=== PATIENT | male | born 1970 | race Caucasian/White ===

== ENCOUNTER 2018-10-24 18:22 | Emergency (ER) | payer OTHER ==
[~2018-10-24] VITALS: Ht 182.9 cm; Wt 90.7 kg
--- NOTE | ~2018-10-24 | EKG ---
[address] [place] [address] ELECTROCARDIOGRAM REPORT Name: KIM BARROSO Room #: REG MAG Rahman#: [id number] Admission: 10/24/18 Attend Phys: Discharge: Date of : 68 Report #: [id number] THIS REPORT FOR: //name// [facility] ED Test Date: 2018-10-24 Test Time: 18:27:53 Pat Name: KIM BARROSO Department: Room: Gender: Sales Account Representative: [place] : 1970 Requested By: Wayne Chen Order Number: [id number] MD: Frank Francis Measurements Intervals [place] Rate: 90 P: 94 [place]: 152 QRS: -4 QRSD: 92 T: 86 QT: 491 QTc: 601 Interpretive Statements Sinus rhythm Low voltage, extremity leads Nonspecific ST/T abnormalities, lateral leads No previous ECG available for comparison Electronically Signed On 10-24-2018 19:27:53 POWER SHEAR OPERATOR by Frank Francis [email or web address] <ELECTRONICALLY SIGNED> By: Frank Francis MD 10/24/18 1927 1827 182 Frank Francis MD /FERNANDO
[2018-10-24 19:17] LABS: ABSOLUTE NEUTROPHILS 4.8 thou/uL (1.4-8.2); BASOPHILS 0.7 % (0.0-2.0); EOSINOPHILS 3.5 % (0.0-3.0); HEMATOCRIT 44.1 % (42.0-52.0); HEMOGLOBIN 14.2 gm/dL (14.0-18.0); LYMPHOCYTES 25.8 % (24.0-44.0); MCH 29.3 pg (26.0-34.0); MCHC 32.3 g/dL (28.0-37.0); MCV 90.8 fL (80.0-100.0); MONOCYTES 10.1 % (1.0-8.0); PLATELET COUNT 265 thou/uL (150-400); POLYS 59.9 % (36.0-66.0); RBC 4.86 mil/uL (4.50-6.00); RDW 15.2 % (10.5-14.5); WBC 8.1 thou/uL (4.0-11.0)
[2018-10-24 19:21] LABS: ANION GAP 7 mmol/L (7-16); BUN 21 mg/dL (7-18); CALCIUM 8.1 mg/dL (8.5-10.1); CHLORIDE 106 mmol/L (98-107); CO2 27 mmol/L (21-32); GLUCOSE 101 mg/dL (74-106); POTASSIUM 4.7 mmol/L (3.5-5.1); SODIUM 140 mmol/L (136-145)
[2018-10-24 19:29] LABS: ALBUMIN 2.8 g/dL (3.4-5.0); LIPASE 169 U/L (73-393); MAGNESIUM 2.3 mg/dL (1.8-2.4); SGOT 47 U/L (15-37); SGPT 29 U/L (30-65); TOTAL BILIRUBIN 0.6 mg/dL (<0.1-1.0); TOTAL PROTEIN 7.4 g/dL (6.4-8.2); TROPONIN-I <0.06 ng/mL (<0.06)
[2018-10-24] MEDS ORDERED: PREDNISONE 20 M20 MG PO (20:49)
[2018-10-24] MEDS ORDERED: ZOFRAN8 MG PO (20:49)
[2018-10-24] MEDS ORDERED: VENTOLIN HFA 1818 GM INH (20:49)
[2018-10-24 21:14] VITALS: BP 112/57
== END 2018-10-24 21:15 | disposition home or self-care (01) ==
LOC: ER 18:22
PROVIDERS: Emergency Medicine
DX: I11.0 Hypertensive heart disease with heart failure (principal); I50.9 Heart failure, unspecified; J44.1 Chronic obstructive pulmonary disease with (acute) exacerbation; J20.9 Acute bronchitis, unspecified; K70.31 Alcoholic cirrhosis of liver with ascites; Z76.5 Malingerer [conscious simulation]; K43.2 Incisional hernia without obstruction or gangrene; R11.2 Nausea with vomiting, unspecified; R19.7 Diarrhea, unspecified; Z91.14 Patient's other noncompliance with medication regimen; I07.1 Rheumatic tricuspid insufficiency; Z85.038 Personal history of other malignant neoplasm of large intestine; F15.10 Other stimulant abuse, uncomplicated; Z59.0 Homelessness; Z87.01 Personal history of pneumonia (recurrent)

== ENCOUNTER 2018-10-27 22:19 | Inpatient (IN) | payer OTHER ==
[~2018-10-27] VITALS: Ht 175.3 cm; Wt 81.6 kg
[~2018-10-27 22:19] MED LIST: PREDNISONE 20 M20 MG PO; VENTOLIN HFA 1818 GM INH; ZOFRAN8 MG PO
[2018-10-27 22:21] VITALS: BP 142/101
[2018-10-27 23:21] LABS: HEMATOCRIT 41.8 % (42.0-52.0); HEMOGLOBIN 13.7 gm/dL (14.0-18.0); MCH 29.4 pg (26.0-34.0); MCHC 32.8 g/dL (28.0-37.0); MCV 89.4 fL (80.0-100.0); PLATELET COUNT 258 thou/uL (150-400); RBC 4.67 mil/uL (4.50-6.00); WBC 10.6 thou/uL (4.0-11.0)
[2018-10-27 23:28] LABS: ANION GAP 9 mmol/L (7-16); BUN 26 mg/dL (7-18); CALCIUM 8.1 mg/dL (8.5-10.1); CHLORIDE 105 mmol/L (98-107); CO2 27 mmol/L (21-32); CREATININE 1.1 mg/dL (0.7-1.3); GLUCOSE 107 mg/dL (74-106); POTASSIUM 5.1 mmol/L (3.5-5.1); SODIUM 141 mmol/L (136-145)
[2018-10-27 23:36] LABS: TROPONIN-I <0.06 ng/mL (<0.06)
[2018-10-27 23:49] LABS: ABSOLUTE NEUTROPHILS 8.2 thou/uL (1.4-8.2)
[2018-10-27 23:51] LABS: PLATELET ESTIMATE NORMAL; POLYCHROMASIA OCCASIONAL
[2018-10-27] MEDS ORDERED: LISINOPRIL20 MG PO (23:55)
[2018-10-27] MEDS ORDERED: LASIX 40 MG TAB40 M2 PO (23:55)
[2018-10-27] MEDS ORDERED: ASPIR 8181 MG PO (23:56)
[2018-10-27] MEDS ORDERED: COREG6.25 MG PO (23:56)
[2018-10-27] MEDS ORDERED: ROBITUSSIN COU237 M2 PO (23:56)
[2018-10-27] MEDS ORDERED: ACETAMINOPHEN325 M3 PO (23:58)
[2018-10-28 00:56] VITALS: BP 132/105
[2018-10-28 06:09] VITALS: BP 128/96
[2018-10-28 07:58] VITALS: BP 138/107
--- NOTE | 2018-10-28 10:11 | EKG ---
[address] [employer] [place] [address] ELECTROCARDIOGRAM REPORT Name: KIM BARROSO Room #: 351-P ADM IN M.R.#: [id number] Admission: 10/28/18 Attend Phys: Odette Oneill Discharge: Date of : 68 Report #: [id number] THIS REPORT FOR: //name// [facility] ED Test Date: 2018-10-27 Test Time: 23:16:25 Pat Name: KIM BARROSO Department: Room: [facility] Gender: M Inspector Receiving: LUCHO LAURENT : 1970 Requested By: Peña Stein Order Number: [id number] MD: Eric Tobin Measurements Intervals [place] Rate: 92 P: 70 [place]: 145 QRS: -20 QRSD: 106 T: 146 QT: 394 QTc: 488 Interpretive Statements Sinus rhythm Borderline low voltage, extremity leads RSR' in V1 or V2, probably normal variant Nonspecific T abnormalities, lateral leads Borderline prolonged QT interval Compared to ECG 10/24/2018 18:27:53 No significant change was found Electronically Signed On 10-28-2018 10:10:55 SHIPPING CHECKER by Eric Tobin [email or web address] <ELECTRONICALLY SIGNED> By: Eric Tobin MD, [facility] 10/28/18 1010 [id number] [id number] Eric Tobin MD, [facility] /EPI
[2018-10-28 11:31] VITALS: BP 138/104
== END 2018-10-28 11:32 | disposition home or self-care (01) | DRG 291 ==
LOC: ER 22:19 → EROBS 10-28 00:14 → 3W 10-28 01:33
PROVIDERS: Emergency Medicine; ADMIT Hospitalist
DX: I11.0 Hypertensive heart disease with heart failure (principal); J96.20 Acute and chronic respiratory failure, unspecified whether with hypoxia or hypercapnia; I50.23 Acute on chronic systolic (congestive) heart failure; K70.30 Alcoholic cirrhosis of liver without ascites; B18.2 Chronic viral hepatitis C; F10.10 Alcohol abuse, uncomplicated; J44.9 Chronic obstructive pulmonary disease, unspecified; Y90.9 Presence of alcohol in blood, level not specified; I07.1 Rheumatic tricuspid insufficiency; F15.10 Other stimulant abuse, uncomplicated; I27.20 Pulmonary hypertension, unspecified; Z85.038 Personal history of other malignant neoplasm of large intestine; Z79.82 Long term (current) use of aspirin; Z79.899 Other long term (current) drug therapy; Z79.1 Long term (current) use of non-steroidal anti-inflammatories (NSAID); Z79.51 Long term (current) use of inhaled steroids; Z91.19 Patient's noncompliance with other medical treatment and regimen; Z88.5 Allergy status to narcotic agent; Z59.0 Homelessness
CPT/HCPCS: 10879